=== PATIENT | female | born 1995 | race Two or more races ===

== ENCOUNTER 2018-03-25 16:55 | Emergency (ER) | payer SELFPAY ==
--- NOTE | 2018-03-25 17:04 | PDOC ---
History of Present Illness - General History Source: Patient Exam Limitations: No Limitations <Beatris Garcia - Last Filed: 03/25/18 18:58> <Victor Hugo Carrillo - Last Filed: 03/25/18 19:10> - General Chief Complaint: Syncope/Near Syncope Stated Complaint: SYNCOPE Time Seen by Provider: 03/25/18 17:03 - History of Present Illness Initial Comments: 03/25/18 18:09 The patient is a 22 year old female with no significant past medical history brought in by EMS after a episode of fainting today. The patient reports that experiencing lightheadedness and nausea with vomiting undigested food for the past 3-4 days. Today, she was at her school's cafeteria when she felt lighteaded and lost consciousness, hitting her left knee and head. She states she was outdoors when she fell and did not have any witnesses. She does not recall any the fall. Denies tongue biting or urinary incontinence. On evaluation , she complains of left knee pain that is worse with movement of the knee. She denies any headache, blurred vision, numbness or tingling. She denies neck or back pain. She denies chest pain or shortness of breath. She denies fever, chills, or cough. She denies OCP use. Pt notes that she has been very stressed recently. Pt currently on her period. (Beatris Garcia) Past History <Beatris Garcia - Last Filed: 03/25/18 18:58> <Victor Hugo Carrillo - Last Filed: 03/25/18 19:10> - Past Medical History Allergies/Adverse Reactions: Allergies Allergy/AdvReac Type Severity Reaction Status Date / Time No Known Allergies Allergy Verified 03/25/18 17:15 Home Medications: Ambulatory Orders NK [No Known Home Medication] 03/25/18 Review of Systems - Review of Systems Able to Perform ROS?: Yes <Beatris Garcia - Last Filed: 03/25/18 18:58> <Victor Hugo Carrillo - Last Filed: 03/25/18 19:10> - Review of Systems Comments:: 03/25/18 18:10 CONSTITUTIONAL: No reported: Fever, Chills, Diaphoresis, Malaise, Loss of Appetite HEENT: No reported: Rhinorrhea, Nasal Congestion, Throat Pain, Throat Swelling, Difficulty Swallowing, Mouth Swelling, Ear Pain, Eye Pain, Visual Changes CARDIOVASCULAR: Present: lightheadedness, LOC No reported: Chest Pain, Palpitations, Irregular Heart Rate, Peripheral Edema RESPIRATORY: No reported: Cough, Shortness of Breath, SOB with Exertion, Orthopnea, Wheezing , Stridor, Hemoptysis GASTROINTESTINAL: Present: nausea, vomiting No reported: Abdominal pain, Abdominal Distension, Diarrhea, Constipation, Melena, Hematochezia GENITOURINARY: No reported: Dysuria, Frequency, Urgency, Hesitancy, Flank Pain, Genital Pain MUSCULOSKELETAL: Present: left knee pain No reported: Myalgia, Joint Swelling, Back pain, Neck Pain SKIN: No reported: Rash, Itching, Pallor HEMEATOLOGIC/IMMUNOLOGIC: No reported: Easy Bleeding, Easy Bruising, Lymphadenopathy, Frequent infections ENDOCRINE: No reported: Unexplained Weight Gain, Unexplained Weight Loss, Heat Intolerance , Cold Intolerance NEUROLOGIC: No reported: Headache, Focal Weakness, Paresthesias, Vertigo, Lightheadedness, Unsteady Gait, Seizure, Mental Status Changes, Incontinence PSYCHIATRIC: No reported: Anxiety, Depression (Beatris Garcia) *Physical Exam <Beatris Garcia - Last Filed: 03/25/18 18:58> <Victor Hugo Carrillo - Last Filed: 03/25/18 19:10> - Vital Signs Last Vital Signs Temp Pulse Resp BP Pulse Ox 98.3 F 65 20 97/56 100 03/25/18 16:56 03/25/18 16:56 03/25/18 16:56 03/25/18 16:56 03/25/18 16:56 - Physical Exam Comments: 03/25/18 18:10 GENERAL: The patient is awake, alert, and fully oriented, Nontoxic - in no acute distress. HEAD: Normocephalic, atraumatic. EYES: extraocular movements intact, sclera anicteric, conjunctiva clear. ENT: Normal voice, +Dry mucous membranes. NECK: Normal range of motion, supple LUNGS: Breath sounds equal, clear to auscultation bilaterally. No wheezes, no rhonchi, no rales. HEART: Regular rate and rhythm, without murmur, rub or gallop. ABDOMEN: Soft, nontender, No guarding, no rebound.No CVA tenderness EXTREMITIES: LLE: Medial knee tenderness to palpation. All other extremities: Normal range of motion, no edema. No cyanosis. No erythema, or tenderness. NEUROLOGICAL: No facial assymetry, Normal speech, PSYCH: Normal mood, normal affect. SKIN: Warm, Dry, normal turgor, (Beatris Garcia) Heart Score/ECG Review <Beatris Garcia - Last Filed: 03/25/18 18:58> <Victor Hugo Carrillo - Last Filed: 03/25/18 19:10> - ECG Impressions Comment:: 03/25/18 18:33 Twelve-lead EKG was performed and reviewed by me. There is normal sinus rhythm with a normal rate. Rate of 67 The axis is normal. The intervals are normal. There is normal R wave progression There are no ST or T wave abnormalities. Impression: Normal twelve-lead EKG (Victor Hugo Carrillo) ED Treatment Course - LABORATORY CBC & Chemistry Diagram: 03/25/18 17:51 03/25/18 17:51 <Beatris Garcia - Last Filed: 03/25/18 18:58> - LABORATORY CBC & Chemistry Diagram: 03/25/18 17:51 03/25/18 17:51 <Victor Hugo Carrillo - Last Filed: 03/25/18 19:10> - ADDITIONAL ORDERS Additional order review: Laboratory Results 03/25/18 03/25/18 18:34 17:51 Sodium 133 L Potassium 3.7 Chloride 102 Carbon Dioxide 27 Anion Gap 4 L BUN 10 Creatinine < 0.8 Creat Clearance w eGFR > 60 Random Glucose 89 Calcium 8.9 Total Bilirubin 0.7 AST 15 ALT 7 L Alkaline Phosphatase 47 Total Protein 7.2 Albumin 4.4 Urine Color Yellow Urine Appearance Clear Urine pH 7.5 Ur Specific [place] 1.010 Urine Protein Negative Urine Glucose (UA) Negative Urine Ketones Negative Urine Blood 1+ H Urine Nitrite Negative Urine Bilirubin Negative Urine Urobilinogen 0.2 Ur Leukocyte Esterase Trace H Urine RBC 3-5 Urine WBC 5-10 Ur Epithelial Cells 3-5 Urine Yeast Few Urine HCG, Qual Negative 03/25/18 17:51 RBC 4.51 MCV 87.4 MCHC 35.3 RDW 12.0 MPV 9.1 Neutrophils % 71.9 Lymphocytes % 21.6 Monocytes % 4.8 Eosinophils % 1.5 Basophils % 0.2 - RADIOLOGY Radiology Studies Ordered: Category Date Time Status KNEE 3 POS-LEFT [RAD] Stat Radiology 03/25/18 17:13 Ordered Medical Decision Making <Beatris Garcia - Last Filed: 03/25/18 18:58> <Victor Hugo Carrillo - Last Filed: 03/25/18 19:10> - Medical Decision Making 03/25/18 17:16 22y F no pmhx presents with syncope, states she has been feeling alittle lightheaded and nauseus the past few days especially after eating, +nbnb vomiting. pt had syncopal episode without any tongue biting/urinary incontinence. ddx includes possible vasovagal syncope, anemia, metoblic derangement, We'll check lab work, EKG, UA, U will hdyrate pt will ck xray to r/o knee xray A portion of this note was documented by scribe services under my direction. I have reviewed the details of the note, within reason, and agree with the documentation with the following case summary and management plan written by me (Victor Hugo Carrillo) *DC/Admit/Observation/Transfer <Beatris Garcia - Last Filed: 03/25/18 18:58> - Discharge Dispostion Admit: No <Victor Hugo Carrillo - Last Filed: 03/25/18 19:10> Diagnosis at time of Disposition: Syncope Qualifiers: Syncope type: vasovagal syncope Qualified Code(s): R55 - Syncope and collapse Knee pain, left Qualifiers: Chronicity: acute Qualified Code(s): M25.562 - Pain in left knee - Discharge Dispostion Condition at time of disposition: Stable - Patient Instructions Printed Discharge Instructions: DI for Syncope in Adults (Fainting) Additional Instructions: Return to the emergency department immediately with ANY new, persistent or worsening symptoms. Stay hydrated. Make sure you are eatin gand drinking sufficiently. You MUST call and follow up with your doctor in 2-3 days for further evaluation of your symptoms. Results were discussed with you. Please make sure your doctor reviews the results of your emergency evaluation. - Attestations Scribe Attestion: 03/25/18 18:10 Documentation prepared by Beatris Garcia, acting as medical records tech for Victor Hugo Carrillo MD. (Betzy Garcia
[2018-03-25 17:26] VITALS: BP 97/56; PULSE 65; TEMP 98.3; BMI 20.5
[2018-03-25 18:17] LABS: BASO % 0.2 % (0-2.0); EOS % 1.5 % (0-4.5); HEMATOCRIT 39.4 % (32.4-45.2); HEMOGLOBIN 13.9 GM/dl (10.7-15.3); LYMPH % 21.6 % (8-40); MCH 30.9 pg (25.7-33.7); MCHC 35.3 g/dl (32.0-36.0); MEAN CELL VOLUME 87.4 fl (80-96); MEAN PLT VOLUME 9.1 fl (7.5-11.1); MONO % 4.8 % (3.8-10.2); NEUT % 71.9 % (42.8-82.8); PLATELET COUNT 186 K/MM3 (134-434); RBC 4.51 M/mm3 (3.60-5.2); WHITE BLOOD COUNT 5.8 K/mm3 (4.0-10.8)
[2018-03-25 18:24] LABS: ALBUMIN 4.4 g/dl (3.5-5.0); ALK PHOS 47 U/L (32-92); ANION GAP 4 (8-16); BILIRUBIN,TOTAL 0.7 mg/dl (0.2-1.0); BLOOD UREA NITROGEN 10 mg/dl (7-18); CALCIUM 8.9 mg/dl (8.4-10.2); CHLORIDE 102 mmol/L (98-107); CO2 27 mmol/L (22-28); GLUCOSE,RANDOM 89 mg/dl (74-106); POTASSIUM 3.7 mmol/L (3.5-5.1); SGOT/AST 15 U/L (10-42); SGPT/ALT 7 U/L (10-40); SODIUM 133 mmol/L (136-145); TOT PROT 7.2 g/dl (6.4-8.3)
[2018-03-25 18:40] LABS: CREATININE < 0.8 mg/dl (0.6-1.3)
[2018-03-25 18:41] LABS: PH,URINE 7.5 (4.5-8); URINE APPEARANCE Clear; URINE BILIRUBIN Negative (NEGATIVE); URINE GLUCOSE (UA) Negative (NEGATIVE); URINE KETONE Negative (NEGATIVE); URINE LEUK ESTERASE TRACE (NEGATIVE); URINE NITRITE Negative (NEGATIVE); URINE PROTEIN Negative (NEGATIVE); URINE UROBILINOGEN 0.2 (0.2-1.0)
[2018-03-25 18:42] LABS: HCG,QUALITATIVE URINE NEGATIVE; URINE COLOR YELLOW
[2018-03-25 19:05] LABS: YEAST FEW
--- NOTE | 2018-03-25 20:21 | PDOC ---
*Physical Exam - Vital Signs Last Vital Signs Temp Pulse Resp BP Pulse Ox 98.3 F 65 20 97/56 100 03/25/18 16:56 03/25/18 16:56 03/25/18 16:56 03/25/18 16:56 03/25/18 16:56 ED Treatment Course - LABORATORY CBC & Chemistry Diagram: 03/25/18 17:51 03/25/18 17:51 - ADDITIONAL ORDERS Additional order review: Laboratory Results 03/25/18 03/25/18 18:34 17:51 Sodium 133 L Potassium 3.7 Chloride 102 Carbon Dioxide 27 Anion Gap 4 L BUN 10 Creatinine < 0.8 Creat Clearance w eGFR > 60 Random Glucose 89 Calcium 8.9 Total Bilirubin 0.7 AST 15 ALT 7 L Alkaline Phosphatase 47 Total Protein 7.2 Albumin 4.4 Urine Color Yellow Urine Appearance Clear Urine pH 7.5 Ur Specific [place] 1.010 Urine Protein Negative Urine Glucose (UA) Negative Urine Ketones Negative Urine Blood 1+ H Urine Nitrite Negative Urine Bilirubin Negative Urine Urobilinogen 0.2 Ur Leukocyte Esterase Trace H Urine RBC 3-5 Urine WBC 5-10 Ur Epithelial Cells 3-5 Urine Yeast Few Urine HCG, Qual Negative 03/25/18 17:51 RBC 4.51 MCV 87.4 MCHC 35.3 RDW 12.0 MPV 9.1 Neutrophils % 71.9 Lymphocytes % 21.6 Monocytes % 4.8 Eosinophils % 1.5 Basophils % 0.2 Progress Note - Progress Note Progress Note: Care of this patient received from 3 position x-ray study of patient's left knee reveals no evidence of acute fracture/dislocation or effusion. Patient reexamined: She feels much improved; she is able to take water by mouth without nausea/vomiting. She no longer has lightheadedness. The patient is attending [employer] locally but lives in [place], [place]. Patient has been advised to follow-up with her general doctor in [place] prior to returning to school. Patient has contacted her family who will pick her up at the college this evening. She has been given documentation that she should not attend classes or attend examinations over the next 48 hours. Results of patient's diagnostic evaluation has been given to her. If she has recurrence of lightheadedness/vomiting or develops any other new symptoms, she should return here to ER. *DC/Admit/Observation/Transfer Diagnosis at time of Disposition: Syncope Qualifiers: Syncope type: vasovagal syncope Qualified Code(s): R55 - Syncope and collapse Knee pain, left Qualifiers: Chronicity: acute Qualified Code(s): M25.562 - Pain in left knee Knee contusion Qualifiers: Encounter type: initial encounter Laterality: left Qualified Code(s): S80.02XA - Contusion of left knee, initial encounter - Discharge Dispostion Disposition: HOME Condition at time of disposition: Stable - Referrals - Patient Instructions Printed Discharge Instructions: DI for Syncope in Adults (Fainting) Additional Instructions: Return to the emergency department immediately with ANY new, persistent or worsening symptoms. Stay hydrated. Make sure you are eating and drinking sufficiently. ice/elevation of left knee for the next 2 days You MUST call and follow up with your doctor in 2-3 days for further evaluation of your symptoms. Results were discussed with you. Please make sure your doctor reviews the results of your emergency evaluation. No school for the next 2-3 days - Post Discharge Activity Forms/Work/School Notes: Back to School
--- NOTE | 2018-03-26 10:46 | EKG ---
Test Reason : Blood Pressure : / mmHG Vent. Rate : 067 BPM Atrial Rate : 067 BPM P-R Int : 130 ms QRS Dur : 080 ms QT Int : 400 ms P-R-T Axes : 046 077 053 degrees QTc Int : 422 ms NORMAL SINUS RHYTHM NORMAL ECG NO PREVIOUS ECGS AVAILABLE Confirmed by SHAHBAZ ALEXANDER MD ([id number]) on 03/26/2018 10:46:11 AM Referred By: WILMA Confirmed By:SHAHBAZ ALEXANDER MD
== END 2018-03-25 20:28 | disposition home or self-care (01) ==
LOC: FER 16:55
DX: R55 Syncope and collapse (principal); M25.562 Pain in left knee; W18.39XA Other fall on same level, initial encounter; Y93.89 Activity, other specified; Y92.214 College as the place of occurrence of the external cause
CPT/HCPCS: 36415; 73562-TC-LT-FY; 80053; 81003; 81015; 84703; 85025; 93005; 99284-25